=== PATIENT | female | born 1945 | race Caucasian/White ===

== ENCOUNTER 2019-12-15 09:16 | Outpatient (CLI) | payer MEDICARE, BC, SELFPAY ==
--- NOTE | 2019-12-15 09:27 | MM_ITS ---
WS: [id number] Bilateral screening digital mammogram, 12/15/2019 Clinical Data: SCREENING Comparison: 08/31/2018, 08/28/2017, 11/20/2016, 05/17/2016, 05/08/2016, 04/12/2015, 01/27/2013. Findings: The breast parenchymal pattern shows heterogeneous density. No spiculated masses or clustered calcifi cations are seen. There are no secondary signs of carcinoma. There are mole markers on each breast. MM/[id number] Impression: 1. Negative bilateral mammogram unchanged. 2. Recommend annual screening mammograms. BIRADS: 1-Negative FOLLOW UP: 1 Year Follow-up The CAD tool checker was used.
== END 2019-12-15 09:17 | disposition home or self-care (01) ==
PROVIDERS: PCP Internal Medicine; Visit Provider Internal Medicine
DX: Z12.31 Encounter for screening mammogram for malignant neoplasm of breast (principal)
CPT/HCPCS: 77067

== ENCOUNTER → 2020-04-18 09:31 | Outpatient (BNVA) | payer MEDICARE, BC, SELFPAY | PROVIDERS: PCP Internal Medicine; Visit Provider Internal Medicine | DX: E78.5 Hyperlipidemia, unspecified (principal) | CPT/HCPCS: 80053; 80061; 85025 ==

== ENCOUNTER 2021-01-01 16:16 | Outpatient (CLI) | payer MEDICARE, BC, SELFPAY | END 2021-01-01 16:17 | disposition home or self-care (01) | PROVIDERS: PCP Internal Medicine; Visit Provider Internal Medicine | DX: K52.9 Noninfective gastroenteritis and colitis, unspecified (principal) | CPT/HCPCS: 80053; 82784; 83516; 83630; 84443; 87493; 87506; 87635 ==

== ENCOUNTER 2021-01-08 07:31 | Day surgery (SDC) | payer MEDICARE, BC, SELFPAY ==
[2021-01-02 13:08] VITALS: BMI 27.6
--- NOTE | 2021-01-08 06:59 | P.HP_ITS ---
Same Day Surgery H&P Indication for Procedure/HPI DATE OF PROCEDURE: January 08, 2021 CHIEF COMPLAINT/INDICATIONFOR SURGICAL PROCEDURE: Chronic diarrhea PREOP DIAGNOSIS: Chronic diarrhea PLANNED PROCEDRUE: Operation Date: 01/08/21 08:45 Proposed Procedures p Colonoscopy 97392 k52.9(Not Applicable) - Philip Miner MD Medications/Allergies* Home Medications Medication Instructions Recorded Confirmed Type multivitamin 1 tab PO DAILY 02/21/20 01/02/21 History Allergies/Adverse Reactions Allergy/AdvReac Type Severity Reaction Status Date / Time codeine Allergy ADR-Nausea Verified 01/02/21 13:03 epinephrine Allergy rapid HB, Verified 01/02/21 13:03 SOB erythromycin base Allergy Unknown Verified 01/02/21 13:03 Penicillins Allergy ALGY-Hives Verified 01/02/21 13:03 Sulfa (Sulfonamide Allergy nausea Verified 01/02/21 13:03 Antibiotics) Pertinent History/Comorbid Conditions* Medical History (Updated 01/01/21 @ 13:30 by Philip Miner MD) Anserine bursitis BCC (basal cell carcinoma of skin) Dyslipidemia Normal colonoscopy Family History (Updated 04/22/19 @ 16:04 by Vidhya Lange LPN) Cancer Hypertension Stroke Social History Smoking and tobacco status: never smoked Alcohol intake: current Alcohol type: wine History of recent travel: No Pertinent Exam Findings alert, oriented x 3, clear to auscultation bilaterally, regular rate & rhythm, operative site marked and procedure specific exam findings Recommendations Surgery/Procedure today Coding Level of Care Code Acute Apiculturist for Jennifer Hope
--- NOTE | 2021-01-08 08:04 | ANES.PREANE2 ---
Pre-Anesthetic Assessment Pre-Anesthetic Assessment: Height/Weight: Height 1.68 m Weight 77.564 kg Preop Diagnosis: Diarrrhea Proposed Procedure: Operation Date: 01/08/21 08:45 Proposed Procedures p Colonoscopy 71979 k52.9(Not Applicable) - Philip Miner MD Was Beta Amanda taken within 24 hours: N/A Was Clonidine taken within 24 hours: N/A Social: Social History: No alcohol and No tobacco Exam: Pre-Anes Outpt Exam: alert and oriented x 3 Airway: Submandibular: WNL Pulmonary: Pulmonary: None reported CV/HEM: CV/HEM: None reported : : None reported Hepatic: Hepatic: None reported GI: Comments: Diarrhea and changes in bowel habit Metabolic: Metabolic: Hyperlipidemia Musc/skel: Musc/skel: None reported Neuropsych: Neuropsych: None reported Anesthetic Plan: ASA status: 2 Anesthesia: MAC PFSH Anesthesia PFSH: Medical History Anserine bursitis BCC (basal cell carcinoma of skin) Dyslipidemia Normal colonoscopy Family History Other Cancer Hypertension Stroke Social History Smoking and tobacco status: never smoked Alcohol intake: current Alcohol type: wine History of recent travel: No Data Anesthesia Cardiac Studies: No Data to Display
[2021-01-08 08:19] VITALS: BP 137/70; PULSE 71; RESP 16; TEMP 36.1; O2SAT 98
[2021-01-08] MEDS: sodium chloride 0.9% 1,000 ML 30 ML IV (08:32)
[2021-01-08 09:54] VITALS: BP 164/86; PULSE 75; RESP 16; TEMP 36.2; O2SAT 95
[2021-01-08 10:03] VITALS: BP 135/85; PULSE 67; RESP 18; O2SAT 97
--- NOTE | 2021-01-08 13:44 | ANE.PACU2 ---
Inpatient post-anesthesia follow up: Airway intact: Yes Vital signs: Temperature 97.1 F Pulse Rate 67 Respiratory Rate 18 Blood Pressure 135/85 Pulse Oximetry 97 Oxygen Delivery Me thod Room Air Oxygen Flow Rate Fraction of Inspir ed Oxygen Hydration adequate: Yes Nausea and vomiting: No Pain level: 1 Mental status: Baseline
== END 2021-01-08 10:50 | disposition home or self-care (01) ==
PROVIDERS: PCP Internal Medicine; Visit Provider Internal Medicine
PROC: 0DJD8ZZ Inspection of Lower Intestinal Tract, Via Natural or Artificial Opening Endoscopic (ICD-10-PCS; CPT 45378; principal; 2021-01-08 08:45)
PROC: 0DJ08ZZ Inspection of Upper Intestinal Tract, Via Natural or Artificial Opening Endoscopic (ICD-10-PCS; CPT 43235; 2021-01-08 08:45)
DX: R19.7 Diarrhea, unspecified (principal); K57.30 Diverticulosis of large intestine without perforation or abscess without bleeding; Z88.5 Allergy status to narcotic agent; Z88.0 Allergy status to penicillin; Z88.2 Allergy status to sulfonamides; K22.2 Esophageal obstruction
CPT/HCPCS: 43239; 45378; 88305; 96360; 96361; J2704; J7030

== ENCOUNTER 2021-02-22 06:37 | Outpatient (CLI) | payer MEDICARE, BC, SELFPAY ==
[2021-02-22] MEDS: iohexol 300 mg/mL 50 mL Btl IV (07:42)
--- NOTE | 2021-02-22 08:00 | CT_ITS ---
WS: [id number] CT ABDOMEN PELVIS TECHNIQUE: Contrast-enhanced CT of the abdomen and pelvis with coronal and sagittal reformatted image s. CLINICAL INFORMATION: K61.1 - Rectal abscess COMPARISON: None. DLP: 1368.[address] scans at [facility] use at least one of these dose optimization techniques: automated e xposure control; mA and/or kV adjustment per patient size (includes targeted exams where dose is matc hed to clinical indication); or iterative reconstruction. FINDINGS: Mild inflammatory stranding and enhancement about the perirectal and perianal soft tissues. Small per ianal peripherally enhancing collection consistent with tiny abscess with fistulous tract to the sphi ncter. This measures approximately 11 x 9 mm extending to the skin at the 5:00 position. Small amount soft tissue thickening in this area. Additional less well-defined tiny pockets of fluid along the le ft sphincter soft tissues. No drainable abscess or fluid collection. Sigmoid colon is normal in appearance. A few air-fluid levels in normal caliber transverse colon. No evidence of high-grade obstruction. Tiny right hepatic cyst. Normal portal vein and splenic vein. Nor mal spleen. Lung bases are well aerated. Small esophageal hiatal hernia. Normal pancreas. Adrenal gla nds are normal. Normal caliber abdominal aorta. No hydronephrosis in either kidney. Small fatty atten uation lesion upper pole left kidney compatible with angiomyolipoma measuring 11 mm. Small amount of associated soft tissue thickening. A few tiny left renal cysts. No abdominal or pelvic lymphadenopathy. No inguinal lymphadenopathy. Disc space narrowing L4-L5. CT/CT abdomen pelvis w con* [id number] IMPRESSION: 1. Mild enhancement with soft tissue thickening involving the perirectal and p erianal soft tissues. 2. 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 Mild soft tissue thickening in this area. 3. A few tiny enhancing ill-defined pockets of fluid along extending along the more proximal left anal canal 4. Otherwise no drainable abscess or fluid collection. 5. Small esophageal hiatal hernia. 6. Tiny low-attenuation lesion upper pole left kidney measuring 11 mm compatib le with angiomyolipoma. Small amount of soft tissue thickening. Recommend 6 mon th follow-up with CT or ultrasound. 7. No other significant findings.
[2021-02-22] MEDS: iohexol 300 mg/mL 100 mL Btl IV (08:34)
== END 2021-02-22 06:38 | disposition home or self-care (01) ==
LOC: RAD 06:41
PROVIDERS: PCP Internal Medicine; Visit Provider Internal Medicine
DX: K61.1 Rectal abscess (principal); N28.9 Disorder of kidney and ureter, unspecified
CPT/HCPCS: 74177

== ENCOUNTER 2021-03-19 13:27 | Outpatient (CLI) | payer MEDICARE, BC, SELFPAY ==
--- NOTE | 2021-03-19 13:42 | MM_ITS ---
WS: [id number] BILATERAL DIGITAL SCREENING MAMMOGRAPHY WITH CAD CLINICAL INFORMATION: SCREENING HISTORY: Screening mammogram. No current complaints. COMPARISON: December 15, 2019 TECHNIQUE: Bilateral CC and MLO views. FINDINGS: The breasts are composed of heterogeneous fibroglandular density tissue, which can limit the detectio n of small underlying mass lesions. Vascular calcification. Stable punctate and clustered calcificati ons. No suspicious mass, asymmetry, calcifications, or architectural distortion. No evidence of malig pavel. MM/[id number] IMPRESSION: BI-RADS: 2-Benign FOLLOW UP: 1 Year Follow-up Recommend return to annual screening mammography.
== END 2021-03-19 13:28 | disposition home or self-care (01) ==
PROVIDERS: PCP Internal Medicine; Visit Provider Internal Medicine
DX: Z12.31 Encounter for screening mammogram for malignant neoplasm of breast (principal)
CPT/HCPCS: 77067

== ENCOUNTER → 2021-04-09 00:01 | Outpatient (BNVA) | payer MEDICARE, BC, SELFPAY | PROVIDERS: PCP Internal Medicine; Visit Provider Nurse Practitioner Family | DX: A09 Infectious gastroenteritis and colitis, unspecified (principal) | CPT/HCPCS: 87506 ==

== ENCOUNTER → 2021-04-10 16:39 | Outpatient (BNVA) | payer MEDICARE, BC, SELFPAY | PROVIDERS: PCP Internal Medicine; Visit Provider Nurse Practitioner Family | DX: A09 Infectious gastroenteritis and colitis, unspecified (principal) | CPT/HCPCS: 87493 ==

== ENCOUNTER → 2021-06-19 10:56 | Outpatient (BNVA) | payer MEDICARE, BC, SELFPAY | PROVIDERS: PCP Internal Medicine; Visit Provider Internal Medicine | DX: A04.72 Enterocolitis due to Clostridium difficile, not specified as recurrent (principal); K52.9 Noninfective gastroenteritis and colitis, unspecified | CPT/HCPCS: 87493 ==

== ENCOUNTER → 2021-08-09 11:24 | Outpatient (BNVA) | payer MEDICARE, BC, SELFPAY | PROVIDERS: PCP Internal Medicine; Visit Provider Internal Medicine | DX: A04.72 Enterocolitis due to Clostridium difficile, not specified as recurrent (principal) | CPT/HCPCS: 87493 ==

== ENCOUNTER 2022-03-21 13:38 | Outpatient (CLI) | payer MEDICARE, BC, SELFPAY ==
--- NOTE | 2022-03-21 13:49 | MM_ITS ---
WS: [id number] BILATERAL 3D TOMOSYNTHESIS DIGITAL SCREENING MAMMOGRAPHY WITH CAD CLINICAL INFORMATION: SCREENING HISTORY: Screening mammogram. No current complaints. COMPARISON: March 19, 2021 TECHNIQUE: Bilateral CC and MLO views. FINDINGS: The breasts are composed of heterogeneous fibroglandular density tissue, which can limit the detectio n of small underlying mass lesions. No suspicious mass, asymmetry, calcifications, or architectural d istortion. No evidence of malignancy. Punctate and lucent centered calcifications. Stable clustered c alcifications RIGHT breast. Vascular calcification. MM/[id number] IMPRESSION: BI-RADS: 2-Benign FOLLOW UP: 1 Year Follow-up Recommend return to annual screening mammography.
== END 2022-03-21 13:39 | disposition home or self-care (01) ==
LOC: RAD 13:43
PROVIDERS: PCP Internal Medicine; Visit Provider Internal Medicine
DX: Z12.31 Encounter for screening mammogram for malignant neoplasm of breast (principal)
CPT/HCPCS: 77063; 77067

== ENCOUNTER → 2022-11-21 15:41 | Outpatient (BNVA) | payer MEDICARE, BC, SELFPAY | PROVIDERS: PCP Family Medicine; Visit Provider Dermatology | DX: L57.0 Actinic keratosis (principal); R22.41 Localized swelling, mass and lump, right lower limb; D17.21 Benign lipomatous neoplasm of skin and subcutaneous tissue of right arm; L82.1 Other seborrheic keratosis; D18.01 Hemangioma of skin and subcutaneous tissue; D22.62 Melanocytic nevi of left upper limb, including shoulder; L57.8 Other skin changes due to chronic exposure to nonionizing radiation; L81.4 Other melanin hyperpigmentation; Z85.828 Personal history of other malignant neoplasm of skin; D23.72 Other benign neoplasm of skin of left lower limb, including hip | CPT/HCPCS: 11102; 17000; 99213 ==

== ENCOUNTER 2022-12-11 14:13 | Outpatient (CLI) | payer MEDICARE, BC, SELFPAY ==
--- NOTE | 2022-12-11 | US_ITS ---
WS: [id number] ULTRASOUND SOFT TISSUES RIGHT medial calf. HISTORY: Right Medial Lower Leg Lump COMPARISON: None available. TECHNIQUE: 2-D and color Doppler imaging is submitted. Palpable area along the RIGHT medial calf corresponds to a prominent vein. This vein courses superfic ially and then deep and is not thrombosed. I suspect this is probably a patent head inspector from one of the larger veins. There is no thrombosis. Could potentially be a small varicosity. Otherwise negativ e study. IMPRESSION: Small venous head inspector versus a focal varicosity in the medial RIGHT calf. This corresponds to the p alpable abnormality.
== END 2022-12-11 14:14 | disposition home or self-care (01) ==
LOC: RAD 14:14
PROVIDERS: PCP Family Medicine; Visit Provider Dermatology
DX: R22.41 Localized swelling, mass and lump, right lower limb (principal)
CPT/HCPCS: 76882

== ENCOUNTER → 2023-11-18 14:19 | Outpatient (BNVA) | payer MEDICARE, BC, SELFPAY | PROVIDERS: PCP Family Medicine; Visit Provider Dermatology | DX: D48.5 Neoplasm of uncertain behavior of skin (principal); L72.0 Epidermal cyst; L82.1 Other seborrheic keratosis; Z85.828 Personal history of other malignant neoplasm of skin; L57.0 Actinic keratosis | CPT/HCPCS: 11102; 17000; 99213 ==

== ENCOUNTER → 2024-05-25 11:00 | Outpatient (BNVA) | payer MEDICARE, BC, SELFPAY | PROVIDERS: PCP Family Medicine; Visit Provider Dermatology | DX: L72.0 Epidermal cyst (principal); L82.1 Other seborrheic keratosis; D18.01 Hemangioma of skin and subcutaneous tissue; Z08 Encounter for follow-up examination after completed treatment for malignant neoplasm; Z85.828 Personal history of other malignant neoplasm of skin; D48.5 Neoplasm of uncertain behavior of skin; L57.0 Actinic keratosis | CPT/HCPCS: 11102; 17000; 99213 ==

== ENCOUNTER → 2024-11-25 11:29 | Outpatient (BNVA) | payer MEDICARE, BC, SELFPAY | PROVIDERS: PCP Family Medicine; Visit Provider Nurse Practitioner Family | DX: L57.8 Other skin changes due to chronic exposure to nonionizing radiation (principal); L81.4 Other melanin hyperpigmentation; L82.1 Other seborrheic keratosis; L72.0 Epidermal cyst; D18.01 Hemangioma of skin and subcutaneous tissue; Z08 Encounter for follow-up examination after completed treatment for malignant neoplasm; Z85.828 Personal history of other malignant neoplasm of skin | CPT/HCPCS: 99213 ==